=== PATIENT | male | born 1950 | race Caucasian/White ===

== ENCOUNTER → 2020-09-02 | Outpatient (CLI) | payer MEDICARE, OTHER | LOC: KOH-I 08:41 | DX: M25.572 Pain in left ankle and joints of left foot (principal); M25.561 Pain in right knee; M79.89 Other specified soft tissue disorders | CPT/HCPCS: 73562; 73610 ==

== ENCOUNTER → 2020-09-04 | Outpatient (CLI) | payer MEDICARE, OTHER | LOC: KOH-I 14:39 | DX: R60.0 Localized edema (principal) | CPT/HCPCS: 93971 ==